=== PATIENT | female | born 1980 | race Caucasian/White ===

== ENCOUNTER 2019-04-24 13:11 | Emergency (ER) | payer BC ==
--- NOTE | 2019-04-24 13:25 | ERPHSYRPT ---
- History of Present Illness Time Seen by Provider: 04/24/19 13:25 Source: patient, family Exam Limitations: no limitations Physician History: 39 y/o right handed white female presents with 2 day h/o left shoulder pain. no recollection of any acute injury. pt having a difficult time abducting left shoulder. localized pain ant shoulder joint. no redness. no chest pain. Occurred: days ago (2) Method of Injury: unknown Quality: constant, aching, throbbing Extremities Pain Location: shoulder: left Modifying Factors: Improves With: movement (worsens pain) Associated Symptoms: No chest discomfort, No chest pain, No dyspnea, No nausea, No neck pain, No vomiting Allergies/Adverse Reactions: No Known Drug Allergies Allergy (Verified 08/15/12 21:21) Hx Tetanus, Diphtheria Vaccination/Date Given: Yes Hx Influenza Vaccination/Date Given: No (dosent want) Hx Pneumococcal Vaccination/Date Given: No (dosent want) - Review of Systems Constitutional: No Symptoms Eyes: No Symptoms Ears, Nose, & Throat: No Symptoms Respiratory: No Symptoms Cardiac: No Symptoms Abdominal/Gastrointestinal: No Symptoms Genitourinary Symptoms: No Symptoms Musculoskeletal: Joint Pain (left shoulder) Skin: No Symptoms Neurological: No Symptoms Psychological: No Symptoms Endocrine: No Symptoms Hematologic/Lymphatic: No Symptoms Immunological/Allergic: No Symptoms All Other Systems: Reviewed and Negative - Past Medical History Pertinent Past Medical History: Yes Neurological History: Migraines ENT History: No Pertinent History Cardiac History: No Pertinent History Respiratory History: No Pertinent History Endocrine Medical History: No Pertinent History Musculoskeletal History: No Pertinent History GI Medical History: No Pertinent History, Gallbladder Disease History: No Pertinent History Psycho-Social History: No Pertinent History Female Reproductive Disorders: Abnormal Uterine Bleeding - Past Surgical History Past Surgical History: Yes Neuro Surgical History: No Pertinent History Cardiac: No Pertinent History Respiratory: No Pertinent History Gastrointestinal: Cholecystectomy Musculoskeletal: No Pertinent History Female Surgical History: Section, Hysterectomy - Social History Smoking Status: Current every day smoker How long have you smoked: 6 yr Drug Use: none Patient Lives Alone: No - Nursing Vital Signs Nursing Vital Signs: Initial Vital Signs Temperature 98.1 F 04/24/19 13:21 Pulse Rate 94 H 04/24/19 13:21 Respiratory Rate 18 04/24/19 13:21 Blood Pressure 159/107 04/24/19 13:21 O2 Sat by Pulse Oximetry 99 04/24/19 13:21 Pain Scale Pain Intensity 8 - Physical Exam General Appearance: mild distress, alert, anxiety Eyes, Ears, Nose, Throat Exam: normal ENT inspection, moist mucous membranes Neck Exam: normal inspection, non-tender, supple, full range of motion Cardiovascular/Respiratory Exam: chest non-tender Abdominal Exam: non-tender Back Exam: normal inspection, normal range of motion, CVA tenderness, vertebral tenderness Shoulder Exam: normal inspection, no evidence of injury, bone tenderness, limited ROM, soft tissue tenderness Elbow/Forearm Exam: normal inspection, non-tender, no evidence of injury, normal ROM Wrist Exam: normal inspection, non-tender, no evidence of injury, normal ROM Hand Exam: normal inspection, non-tender, no evidence of injury, normal ROM Neuro/Tendon Exam: normal sensation, normal motor functions, normal tendon functions Mental Status Exam: alert, oriented x 3, cooperative Skin Exam: normal color, warm, dry SpO2 Interpretation: normal O2 Delivery: Room Air - Course Nursing assessment & vital signs reviewed: Yes Ordered Tests: Active Orders 24 hr Category Date Time Status SHOULDER Stat Exams 04/24/19 13:33 Ordered - Progress Progress Note: 04/24/19 14:21 left shoulder xray-no acute fx or dislocation Counseled pt/family regarding: diagnosis, need for follow-up, rad results - Departure Departure Disposition: Home Clinical Impression: Left shoulder pain Condition: Stable Critical Care Time: No Referrals: SG TAN [Primary Care Provider] - Additional Instructions: wear sling for comfort. follow up with primary doctor for further management Prescriptions: Oxycodone HCl/Acetaminophen [Percocet 5-325 mg Tablet] 1 each PO Q8H PRN PRN #8 tablet MDD 3 PRN Reason: Pain Naproxen 500 mg [Naprosyn 500 MG] 500 mg PO BID #10 tablet
[2019-04-24 13:27] VITALS: BP 159/107; O2SAT 99
[2019-04-24 14:17] VITALS: PULSE 90
[2019-04-24] MEDS ORDERED: PERCOCET TABLET 5/325MG PO STA (14:25)
[2019-04-24] MEDS ORDERED: PERCOCET TABLET 5/325MG ONE (14:35)
[2019-04-24] MEDS ORDERED: DELTASONE 20 MG ONE (14:35)
--- NOTE | 2019-04-24 17:06 | XRAY ---
Indication: Pain. Comparison: None 3 views of the left shoulder demonstrates chunky ossifications interposed between the acromion and humeral head presumed sequelae to old tendinous or bursal injury/inflammation. No other bony, articular, or soft tissue abnormalities.
[2019-04-25] MEDS ORDERED: DELTASONE 20 MG PO ONE (14:26)
== END 2019-04-24 14:33 | disposition home or self-care (01) ==
LOC: ED 13:11
DX: M25.512 Pain in left shoulder (principal)
CPT/HCPCS: 73030; 99283; A9270-GY

== ENCOUNTER 2025-02-11 13:52 | Emergency (ER) | payer OTHER | END 2025-02-11 14:39 | disposition home or self-care (01) | LOC: ED 13:52 | DX: Z53.9 Procedure and treatment not carried out, unspecified reason (principal) ==